=== PATIENT | female | born 1955 | race Caucasian/White ===

== ENCOUNTER 2018-10-24 20:40 | Outpatient (REF) | payer OTHER, SELFPAY | END 2018-10-24 21:00 | LOC: LBN 20:40 | PROVIDERS: PCP Nurse Practitioner; Visit Provider Family Medicine | DX: S91.001A Unspecified open wound, right ankle, initial encounter (principal) | CPT/HCPCS: 87077; 87070; 87186; 87205 ==

== ENCOUNTER 2018-11-22 13:12 | Outpatient (REF) | payer OTHER, SELFPAY | END 2018-11-22 13:32 | LOC: LBN 13:12 | PROVIDERS: PCP Nurse Practitioner; Visit Provider Family Medicine | DX: M65.071 Abscess of tendon sheath, right ankle and foot (principal) | CPT/HCPCS: 87077; 87070; 87186; 87205 ==

== ENCOUNTER 2019-04-15 21:27 | Outpatient (REF) | payer OTHER, SELFPAY | END 2019-04-15 21:47 | LOC: LBN 21:27 | PROVIDERS: PCP Nurse Practitioner; Visit Provider Family Medicine | DX: L02.415 Cutaneous abscess of right lower limb (principal) | CPT/HCPCS: 87070; 87205 ==

== ENCOUNTER 2019-06-10 17:24 | Outpatient (REF) | payer OTHER, SELFPAY | END 2019-06-10 17:44 | LOC: LBN 17:24 | PROVIDERS: PCP Nurse Practitioner; Visit Provider Family Medicine | DX: T81.31XA Disruption of external operation (surgical) wound, not elsewhere classified, initial encounter (principal) | CPT/HCPCS: 87077; 87070; 87186; 87205 ==

== ENCOUNTER 2019-06-24 16:00 | Outpatient (REF) | payer OTHER, SELFPAY | END 2019-06-24 16:20 | LOC: LBN 16:00 | PROVIDERS: PCP Nurse Practitioner; Visit Provider Family Medicine | DX: L03.125 Acute lymphangitis of right lower limb (principal) | CPT/HCPCS: 87077; 87070; 87186; 87205 ==

== ENCOUNTER 2019-12-15 23:34 | Outpatient (REF) | payer OTHER, SELFPAY | END 2019-12-15 23:54 | LOC: LBN 23:34 | PROVIDERS: PCP Nurse Practitioner; Visit Provider Student in an Organized Health Care Education/Training Program | DX: L02.415 Cutaneous abscess of right lower limb (principal); L98.9 Disorder of the skin and subcutaneous tissue, unspecified | CPT/HCPCS: 87077; 87070; 87186; 87205 ==

== ENCOUNTER 2020-01-15 20:25 | Outpatient (REF) | payer OTHER, SELFPAY ==
[2020-01-15 20:20] LABS: Iron 18 ug/dL (50-170); Total Iron Binding Capacity 348 ug/dL (250-450); Transferrin Sat 5 % (15-50)
[2020-01-15 20:33] LABS: Ferritin 8 ng/mL (8-252)
== END 2020-01-15 20:45 ==
LOC: LBN 20:25
PROVIDERS: PCP Nurse Practitioner; Visit Provider Nurse Practitioner
DX: M65.071 Abscess of tendon sheath, right ankle and foot (principal); D50.9 Iron deficiency anemia, unspecified
CPT/HCPCS: 82728; 83540; 83550

== ENCOUNTER 2020-03-22 21:05 | Outpatient (REF) | payer OTHER, SELFPAY ==
[2020-03-22 21:53] LABS: Basophils % 0.4; Eosinophils % 3.3; HCT 32.9 % (36.0-46.0); HGB 9.8 g/dL (12.0-15.5); Lymphocytes % 24.9; Mean Corp. HGB Concentration 29.8 g/dL (32.0-36.0); Mean Corpuscular Hemoglobin 23.3 pg (27.0-33.0); Mean Corpuscular Volume 78.3 fL (80-95); Mean Platelet Volume 10.6 fL (8.0-11.0); Monocytes % 9.1; Neutrophils % 62.1; Platelet Count 290 x1000/uL (130-400); RBC Distribution Width 25.8 % (11.7-14.6); White Blood Cell Count 9.06 k/cumm (4.4-10.8)
[2020-03-22 21:54] LABS: Abs Immature Grans 0.02 k/cumm (0.0-0.09); Absolute Basophil Count 0.04 k/cumm (0.0-0.2); Absolute Lymphocyte Count 2.26 k/cumm (1.2-3.4); Absolute Monocyte Count 0.82 k/cumm (0.11-0.7); Absolute Neutrophil Count 5.62 k/cumm (1.2-6.7); Immature Grans % 0.2 %
== END 2020-03-22 21:25 ==
LOC: LBN 21:05
PROVIDERS: PCP Nurse Practitioner; Visit Provider Nurse Practitioner
DX: D50.9 Iron deficiency anemia, unspecified (principal)
CPT/HCPCS: 85025

== ENCOUNTER 2020-04-22 01:50 | Outpatient (REF) | payer OTHER, SELFPAY ==
[2020-04-22 22:21] LABS: Ferritin 29 ng/mL (8-252)
== END 2020-04-22 02:10 ==
LOC: LBN 01:50
PROVIDERS: PCP Nurse Practitioner; Visit Provider Nurse Practitioner
DX: D64.9 Anemia, unspecified (principal)
CPT/HCPCS: 82728

== ENCOUNTER 2022-01-24 20:25 | Outpatient (REF) | payer OTHER, SELFPAY ==
[2022-01-26 15:57] LABS: COVID-19 RT-PCR UVMMC Result Negative (Negative)
== END 2022-01-24 20:26 | disposition home or self-care (01) ==
LOC: LBN 20:25
PROVIDERS: PCP Nurse Practitioner; Visit Provider Nurse Practitioner
DX: Z20.822 Contact with and (suspected) exposure to COVID-19 (principal); R11.2 Nausea with vomiting, unspecified
CPT/HCPCS: U0003